=== PATIENT | male | born 1935 | race Caucasian/White ===

== ENCOUNTER 2017-03-14 06:44 | Day surgery (SDC) | payer MEDICARE ==
[2017-03-09 10:26] VITALS: BMI 27.3
[~2017-03-14 06:44] MED LIST: LACTATED RINGERS 1,000 ML IV SCH
[2017-03-14 07:09] LABS: Glucose,Whole Blood 116 mg/dL (75-99)
[2017-03-14 07:10] VITALS: TEMP 97
[2017-03-14] MEDS ORDERED: PROPOFOL 10 MG/ML 20 ML VIAL IV ONE (07:47)
--- NOTE | 2017-03-14 07:51 | P.GSHP ---
History of Present Illness H&P Date: 03/14/17 Chief Complaint: Screening colonoscopy, history: Polyps This is a 7-year-old male who presents today for screening colonoscopy. His last colonoscopy was approximately 11 years ago. Patient states that he had benign polyps removed at that time. Past Medical History Past Medical History: Coronary Artery Disease (CAD), Diabetes Mellitus, Hyperlipidemia, Hypertension, Prostate Disorder Additional Past Medical History / Comment(s): Hx of polyps, Chronic back pain, Uses a cane History of Any Multi-Drug Resistant Organisms: None Reported Past Surgical History: Coronary Bypass/CABG, Heart Catheterization Additional Past Surgical History / Comment(s): Aortic valve replacement, yue carotidendarectomy, epidural shots for pain mng. states cabg x2, and aneurysm repair Past Anesthesia/Blood Transfusion Reactions: No Reported Reaction Smoking Status: Former smoker - Past Family History Mother Family Medical History: No Reported History Medications and Allergies Home Medications Medication Instructions Recorded Confirmed Type ALPRAZolam [Xanax] 0.25 mg PO QID PRN 03/09/17 03/14/17 History Aspirin [Children's Aspirin] 81 mg PO DAILY 03/09/17 03/14/17 History Cholecalciferol (Vitamin D3) 2,000 unit PO DAILY 03/09/17 03/14/17 History [Vitamin D3] Enalapril/Hydrochlorothiazide 1 each PO DAILY 03/09/17 03/14/17 History [Enalapril-Hctz 10-25 mg Tablet] HYDROcodone/APAP 10-325MG [[place] 1 tab PO Q8H 03/09/17 03/14/17 History 10-325] Levothyroxine Sodium [Synthroid] 150 mcg PO DAILY 03/09/17 03/14/17 History Meloxicam [Mobic] 7.5 mg PO BID 03/09/17 03/14/17 History Metoprolol Tartrate [Lopressor] 50 mg PO QAM 03/09/17 03/14/17 History [place]-3 Fatty Acids [[place]-3] 1,000 mg PO DAILY 03/09/17 03/14/17 History Rosuvastatin [Crestor] 10 mg PO DAILY 03/09/17 03/14/17 History Tamsulosin HCl [Flomax] 0.4 mg PO DAILY 03/09/17 03/14/17 History sitaGLIPtin [Januvia] 100 mg PO DAILY 03/09/17 03/14/17 History tiZANidine [Zanaflex] 2 mg PO Q8HR PRN 03/09/17 03/14/17 History Allergies Allergy/AdvReac Type Severity Reaction Status Date / Time acetaminophen [From Vicodin] AdvReac Confusion Verified 03/14/17 07:05 atorvastatin [From Lipitor] AdvReac muscle Verified 03/09/17 10:14 pains hydrocodone [From Vicodin] AdvReac Confusion Verified 03/14/17 07:05 Surgical - Exam Vital Signs Temp Pulse Resp BP Pulse Ox 97.0 F L 105 H 18 170/77 95 03/14/17 07:05 03/14/17 07:05 03/14/17 07:05 03/14/17 07:05 03/14/17 07:05 - General well developed, no distress - Eyes PERRL - ENT normal pinna - Neck no masses - Respiratory normal expansion - Cardiovascular Rhythm: regular - Abdomen Abdomen: soft, non tender Results - Labs Abnormal Lab Results - Last 24 Hours (Table) 03/14/17 Range/Units 07:07 POC Glucose (mg/dL) 116 H (75-99) mg/dL Assessment and Plan Plan: We will perform screening colonoscopy.
--- NOTE | 2017-03-14 08:00 | P.OP ---
Date of Procedure: 03/14/17 Preoperative Diagnosis: Screening colonoscopy History of colonic polyp Postoperative Diagnosis: Diverticulosis Procedure(s) Performed: Colonoscopy Implants: Anesthesia: MAC Surgeon: Connor Walker Pathology: none sent Condition: stable Disposition: PACU Indications for Procedure: Operative Findings: Description of Procedure: Patient's placed on the endoscopy table in the lateral position. Digital rectal exam was performed which revealed no abnormalities. The prostate was symmetric without nodules. The fundus colonoscope was then placed patient anus and passed throughout the entire colon. The ileocecal valve was visualized. The cecum, ascending and transverse colon appeared normal. In the descending; there is moderate diverticular changes. There is extensive diverticular changes in the sigmoid colon. There was no evidence of diverticulitis. Scope was then brought back the rectum and this appeared normal. Scope was withdrawn for patient.
[2017-03-14 08:25] VITALS: BP 131/74; PULSE 78; RESP 18
== END 2017-03-14 08:31 | disposition home or self-care (01) ==
LOC: ORWHC2ENDO 06:44
PROVIDERS: ATTEND Surgery
DX: Z12.11 Encounter for screening for malignant neoplasm of colon (principal); K57.30 Diverticulosis of large intestine without perforation or abscess without bleeding; Z86.010 Personal history of colon polyps; Z87.891 Personal history of nicotine dependence; I25.10 Atherosclerotic heart disease of native coronary artery without angina pectoris; Z95.1 Presence of aortocoronary bypass graft; I10 Essential (primary) hypertension; E11.9 Type 2 diabetes mellitus without complications; Z79.84 Long term (current) use of oral hypoglycemic drugs; E78.5 Hyperlipidemia, unspecified; N40.0 Benign prostatic hyperplasia without lower urinary tract symptoms; E07.9 Disorder of thyroid, unspecified; Z79.82 Long term (current) use of aspirin; Z79.1 Long term (current) use of non-steroidal anti-inflammatories (NSAID); Z79.891 Long term (current) use of opiate analgesic; Z79.899 Other long term (current) drug therapy; Z88.5 Allergy status to narcotic agent; Z88.8 Allergy status to other drugs, medicaments and biological substances
CPT/HCPCS: J2704; G0105

== ENCOUNTER → 2023-01-11 | Outpatient (CLI) | payer MEDICARE ==
--- NOTE | 2023-01-11 14:18 | P.PAINPG ---
PQRS Measure Charge Sheet Comment: HISTORY OF PRESENT ILLNESS: 87 yr old male w daughter at side as a referral from Dr Shaw presents today w severe and chronic LBP x 3 mo secondary to DDD, spondylosis and facet arthropathy without myelopathy for evaluation. Pt states pain level is provoked at 6 /10 in intensity, constant, localized in the lower lumbar spine, in character w shooting pain towards the R hip. Pain is provoked by weight bearing activity. Pain is alleviated by use of a cane for ambulatory assistance, medications ([place], Neurontin), topical injections in the past, repositioning and rest. PMH: OA, HTN, Hypothyroidism, BPH, DM II PSH: Colonoscopy (2017) SH: Negative x3 FH: Non contributory All: See list Meds: See list REVIEW OF ORGAN SYSTEMS: CONSTITUTIONAL: No fevers or chills. No recent weight loss. NEUROLOGICAL: + numbness and tingling along the distal extremities. No seizure disorders or headaches. MUSCULOSKELETAL: + pain PSYCHIATRIC: Denies current depression or suicidal thoughts. Physical Examinations : Constitutional : Cooperative , not in acute distress . Neurologic : Cranial nerve II to XII intact. No focal neurological deficits. Psychiatric : alert & oriented x 3. Matching mood & appropriate affect. Judgment & insight intact. Musculoskeletal : Cervical Spine Motor strength in the deltoid and biceps: Normal right side. Normal Left side Motor strength biceps and the wrist extensors: Normal right side . Normal left side Motor strength in the triceps muscle: Normal right side. Normal left side Deep tendon reflexes: Normal at the biceps. Normal at Brachioradialis. Normal at triceps Vertebral body tenderness to deep palpation over Cervical facet loading test: positive bilaterally Spurling test: positive bilaterally Neck distraction test: positive bilaterally Caroline sign: positive bilaterally Lumbar spine Motor strength lower extremities ,thigh and legs 5/5 Right side , 5/5 Left side Deep tendon reflexes : Normal Knee Jerk. Normal Ankle Jerk Vertebral body tenderness over L4 Lumbar facet Loading Test: positive Right / positive Left Range of motion of the lumbar spine Flexion 30 degrees, extension 10 degrees Straight Leg Raise test: Left/ Right positive at degree Emma test: positive right / positive left. Severe tenderness over the Sacroiliac joint on the Right / Left sides Gaenslen test: positive bilaterally Seated flexion test: positive bilaterally. Sacral spine : Severe tenderness over the Sacroiliac joint: right side / left side Range of motion: Flexion of the lumbar spine <60 degrees Range of motion: Extension of the lumbar spine <20 degrees Gaenslen's Test positive Chris's Test positive Emma test: positive right side / left side Thigh Thrust Test Sacral Thrust Test Imaging: CT noncontrast of the lumbar spine from 12/11/22 reviewed Assessment/ Plan : Lumbar spondylosis Recommendation of TATE R paramedian L4-5. May need a series of injections for optimal pain relief. Risks, benefits of procedure discussed and patient verbalized understanding. Admits to aspirin or anti- coagulant use or medical history of diabetes. Protocol for discontinuation/ continuation of medications ananda procedure discussed. All questions answered. I have spent greater than 30 minutes on patient care today. Dr Yeager was available by phone for the evaluation of this patient. The time was used to review the medical records including relevant urine studies and Prescription history (MAPs), review of the available imaging, evaluation and examination of the patient, coordination of care with the medical staff and if applicable referring physicians, as well as creation of the medical record PQRS Narrative: Smoking Status Former smoker Home Medications: Ambulatory Orders ALPRAZolam [Xanax] 0.25 mg PO QID PRN 03/09/17 Aspirin [Children's Aspirin] 81 mg PO DAILY 03/09/17 Cholecalciferol (Vitamin D3) [Vitamin D3] 2,000 unit PO DAILY 03/09/17 Enalapril/Hydrochlorothiazide [Enalapril-Hctz 10-25 mg Tablet] 1 each PO DAILY 03/09/17 HYDROcodone/APAP 10-325MG [[place] 10-325] 1 tab PO Q8H 03/09/17 Levothyroxine Sodium [Synthroid] 150 mcg PO DAILY 03/09/17 Meloxicam [Mobic] 7.5 mg PO BID 03/09/17 Metoprolol Tartrate [Lopressor] 50 mg PO QAM 03/09/17 [place]-3 Fatty Acids [[place]-3] 1,000 mg PO DAILY 03/09/17 Rosuvastatin [Crestor] 10 mg PO DAILY 03/09/17 Tamsulosin HCl [Flomax] 0.4 mg PO DAILY 03/09/17 sitaGLIPtin [Januvia] 100 mg PO DAILY 03/09/17 tiZANidine [Zanaflex] 2 mg PO Q8HR PRN 03/09/17 Controlled Substance Measures - Controlled Substance Measures Is patient prescribed a controlled substance at discharge?: No
[2023-01-11 14:26] VITALS: BP 119/70; PULSE 81; RESP 18; TEMP 97.7
== END ==
LOC: PNWHC3 12:19
PROVIDERS: ATTEND Specialist
DX: M47.816 Spondylosis without myelopathy or radiculopathy, lumbar region (principal); M25.551 Pain in right hip; M25.552 Pain in left hip; M19.90 Unspecified osteoarthritis, unspecified site; I10 Essential (primary) hypertension; E03.9 Hypothyroidism, unspecified; N40.0 Benign prostatic hyperplasia without lower urinary tract symptoms; E11.9 Type 2 diabetes mellitus without complications; Z79.82 Long term (current) use of aspirin; Z79.899 Other long term (current) drug therapy; Z79.84 Long term (current) use of oral hypoglycemic drugs; Z79.890 Hormone replacement therapy; Z88.8 Allergy status to other drugs, medicaments and biological substances; Z88.5 Allergy status to narcotic agent; Z87.891 Personal history of nicotine dependence
CPT/HCPCS: 99211

== ENCOUNTER → 2023-02-07 | Day surgery (SDC) | payer MEDICARE ==
[~2023-02-07] MED LIST changes: +IOPAMIDOL M200 10 ML VIAL ONE; +IV FLUID CONTINUATION 800 ML IV ONE; +LIDOCAINE 1% (10MG/ML) FOR IV START INTRADERMA PRN; +MIDAZOLAM 2 MG/2 ML VIAL ONE; +methylPREDNISolone ACETATE 40 MG/ML 1 ML VIAL ONE
[2023-02-07 09:20] VITALS: TEMP 97
[2023-02-07 09:26] LABS: Glucose,Whole Blood 123 mg/dL (70-110)
--- NOTE | 2023-02-07 09:49 | P.PCN ---
Date of Procedure: 02/07/23 Procedure(s) Performed: PREOPERATIVE DIAGNOSIS: 1- Lumbar Degenerative Disc Diseases 2-Lumbar spondylosis with Facet arthropathy without myelopathy. POSTOPERATIVE DIAGNOSIS: 1-lumbar degenerative disc disease. 2-lumbar spondylosis with facet arthropathy without myelopathy. PROCEDURE 1. Lumbar epidural steroid injection under fluoroscopic guidance at the L4-5 level. ( right paramedial ) (Fluoroscopy imaging was available in radiology department) 2. Lumbar epidurogram. ANESTHESIA: moderate sedation with intravenous Versed 1 mg . Sedation start time : 938 Sedation end time : 945 EBL: Minimal PROCEDURE INDICATION: The patient with low back pain and radiculitis symptoms unresponsive to conservative treatment. Fluoroscopy was used to optimize visualization of the needle placement and to maximize safety. PROCEDURE DESCRIPTION / TECHNIQUE: The patient was seen and identified in the preoperative area. Risks, benefits, complications including but not limited to infections ,bleeding ,allergic reaction to the medications ,nerve damage and not complete pain releife , and alternatives were discussed with the patient. The patient agreed to proceed with the procedure and signed the consent. IV was started, and vital signs were stable. Patient was taken to the OR and time out was completed. The patient was placed in the prone position on procedure table and a pillow was placed under the abdomen to reduce lumbar lordosis. The lumbosacral area was prepped and draped in the usual sterile fashion.ere closely monitored during the procedure. Conscious sedation was used during the procedure to decrease patients anxiety. Vital signs was monitered during the entire procedure. Using anterior-posterior fluoroscopy, the L4-5 interlaminar space ( right paramedial )was identified and the skin over this site was marked and then infiltrated with 1% lidocaine subcutaneously. Subsequently, a 20-gauge Tuohy epidural needle was inserted and advanced toward the epidural space using the ``Loss of resistance technique and guided by AP and lateral fluoroscopy. The correct needle position in the epidural space was verified with the injection of 2 mL of the water soluble contrast dye Isovue 200 contrast and observing an excellent epidurogram with the epidural spread of the dye, after negative aspiration for blood and CSF and in the absence of paresthesias. Again after negative aspiration, a 6 ml mixture containing 40 mg of Depo-medrol ( Preservetive Free ), and 2 ml of preservative free Normal Saline, and 2 ml of preservative free lidocaine 1% solution was injected and a washout of epidurogr am was seen. Needle was withdrawn intact, skin was cleansed, and bandages were applied. COMPLICATIONS: None DISPOSITION / PLANS: The patient was placed in a supine position and transferred to the recovery area in a stable condition for observation. There was no evidence of lower extremity motor or sensory deficit after the procedure. Patient was discharged from the recovery room after meeting discharge criteria. Home discharge instructions were given to the patient by the staff. The patient was reexamined prior to discharge. The patient will schedule a follow up in the clinic in 2-4 weeks.
[2023-02-07 09:54] VITALS: RESP 16
[2023-02-07 10:09] VITALS: BP 124/70; PULSE 83
--- NOTE | 2023-02-07 15:23 | FL ---
Intraoperative/procedural fluoroscopic services were provided. Total fluoroscopy time is 3.1 seconds with a total of 1 submitted images to PACS. Please see the operative/procedural note for further deta ils. DAP: [id number]
== END ==
LOC: ORPAIN 08:54
PROVIDERS: ATTEND Specialist
DX: M51.16 Intervertebral disc disorders with radiculopathy, lumbar region (principal); M47.26 Other spondylosis with radiculopathy, lumbar region; I10 Essential (primary) hypertension; E11.9 Type 2 diabetes mellitus without complications; Z88.8 Allergy status to other drugs, medicaments and biological substances
CPT/HCPCS: 62323; J2250; J1030; Q9966

== ENCOUNTER → 2023-03-01 | Outpatient (CLI) | payer MEDICARE ==
[2023-03-01 13:10] VITALS: BP 110/62; PULSE 80; RESP 18
--- NOTE | 2023-03-01 15:50 | P.PAINPG ---
PQRS Measure Charge Sheet Comment: A 87 yr old male w daughter at side with a history of severe and chronic LBP secondary to lumbar DDD and spondylosis with facet arthropathy without myelopathy presents today for evaluation s/p TATE R paramedian L4-L5. Pt states he experienced 90 % pain relief x 3 wks s/p procedure. Pain level is provoked at 5/10 in intensity, constant, localized in the lumbar spine, tight in character w shooting towards the RLE up to the knee. Pain is provoked by walking for periods of 20 min or more. Pain is alleviated with medications, use of wheelchair and cane for ambulatory assistance, heat, sitting, repositioning and rest. Interventional pain procedures completed include R paramedian TATE L4-L5 Patient is currently on [place], Neurontin Patient denies any side effects of the medication(s), denies excessive drowsiness or sleepiness, denies suicidal ideation and reports that the current pain medication is helping to control the pain and improve activities of daily living. Patient denies any motor or sensory deficits. Patient denies any fever or night sweats, denies any change in the bowel movements or urination. Physical Examination: -Constitutional: Cooperative. Not in acute distress . - Neurologic: Cranial nerve II to XII intact. No focal neurological deficits. - Psychatric: Alert & oriented x 3. Matching mood & appropriate affect. Judgment and insight intact. - Musculoskeletal: Cervical spine: Muscle bulk/ tone/ strength in the bilateral upper extremities normal Vertebral body tenderness to palpation over Spurling test positive Distraction test positive Facet loading test positive TTP Thoracic spine Muscle bulk / tone/ strength in the bilateral paraspinal muscles normal Vertebral body tender to palpation over Facet loading test positive TTP Lumbar spine: Motor bulk/ tone/ strength lower extremities , thigh and legs : 5/5 Deep tendon reflexes : Normal Knee Jerk. Normal Ankle Jerk . Vertebral body tenderness to palpation over Vasquez Test positive Lumbar Facet Loading Test positive Straight Leg Raise: positive at 30 degrees right side/ left side Gaenslen's Test positive Sacral spine : Severe tenderness over the Sacroiliac joint: right side / left side Range of motion: Flexion of the lumbar spine <60 degrees Range of motion: Extension of the lumbar spine <20 degrees Gaenslen's Test positive right side / left side Emma test: positive right side / left side Thigh Thrust Test positive right side / left side Sacral Thrust Test positive right side / left side Assessment and plan: Chronic LBP secondary to lumbar DDD, spondylosis with facet arthropathy without myelopathy Pt exhibited sufficient and substantial pain relief w TATE procedure. Will manage residual pain on his own and may return to clinic on an as needed basis. All questions answered. I have spent less than 30 minutes on patient care today. Dr Yeager was available by phone for the evaluation of this patient. The time was used to review the medical records including relevant urine studies and Prescription history (MAPs), review of the available imaging, evaluation and examination of the patient, coordination of care with the medical staff and if applicable referring physicians, as well as creation of the medical record PQRS Narrative: Smoking Status Former smoker Hx Alcohol Use (MH) No Home Medications: Ambulatory Orders Aspirin [Children's Aspirin] 81 mg PO DAILY 03/09/17 Cholecalciferol (Vitamin D3) [Vitamin D3] 1,000 unit PO DAILY 03/09/17 Enalapril/Hydrochlorothiazide [Enalapril-Hctz 10-25 mg Tablet] 1 each PO DAILY 03/09/17 HYDROcodone/APAP 10-325MG [[place] 10-325] 1 tab PO Q6H PRN 03/09/17 Levothyroxine Sodium [Synthroid] 150 mcg PO DAILY 03/09/17 Metoprolol Tartrate [Lopressor] 50 mg PO QAM 03/09/17 [place]-3 Fatty Acids [[place]-3] 1,000 mg PO DAILY 03/09/17 Tamsulosin HCl [Flomax] 0.4 mg PO DAILY 03/09/17 sitaGLIPtin [Januvia] 100 mg PO DAILY 03/09/17 Dulaglutide [Trulicity] 0.75 mg SQ TU 01/24/23 Gabapentin 300 mg PO DAILY 01/24/23 Montelukast Sodium [Singulair] 10 mg PO DAILY 01/24/23 Omeprazole [PriLOSEC] 40 mg PO DAILY 01/24/23 amLODIPine [Norvasc] 5 mg PO DAILY 01/24/23 Ascorbic Acid [Vitamin C] 1,000 mg PO DAILY 02/03/23 Gabapentin 600 mg PO 02/03/23 Multivit-Min/FA/Lycopen/Lutein [Centrum Silver Men Tablet] 1 each PO DAILY 02/03/23 Pravastatin Sodium [Pravachol] 40 mg PO HS 02/03/23 Zinc Gluconate [Zinc] 50 mg PO DAILY 02/03/23 metFORMIN HCL 500 mg PO DAILY 02/03/23 rOPINIRole HCL 0.25 mg PO DAILY 02/03/23 Controlled Substance Measures - Controlled Substance Measures Is patient prescribed a controlled substance at discharge?: No
== END ==
LOC: PNWHC3 12:35
PROVIDERS: ATTEND Specialist
DX: M54.50 Low back pain, unspecified (principal); M51.36 Other intervertebral disc degeneration, lumbar region; M47.816 Spondylosis without myelopathy or radiculopathy, lumbar region; G89.29 Other chronic pain; Z87.891 Personal history of nicotine dependence; Z88.5 Allergy status to narcotic agent; Z88.8 Allergy status to other drugs, medicaments and biological substances
CPT/HCPCS: 99211

== ENCOUNTER → 2023-05-04 | Outpatient (CLI) | payer MEDICARE ==
[2023-05-04 14:51] VITALS: BP 90/55; PULSE 70; RESP 14; TEMP 97.7
--- NOTE | 2023-05-04 15:50 | P.PAINPG ---
PQRS Measure Charge Sheet Comment: A 87 yr old male w daughter at side with a history of severe and chronic LBP x 2 mo secondary to lumbar DDD and spondylosis with facet arthropathy without myelopathy presents today for evaluation. Pain level is provoked at 7/10 in intensity, constant, localized in the lumbar spine, tight in character w roxie oting towards the BLEs, R > L. Pain is provoked by walking for periods of 20 min or more. Pain is alleviated with a daily physician guided home stretching regimen from Dr Shaw since Nov 2022, medications, use of wheelchair and cane for ambulatory assistance, heat, sitting, repositioning and rest. Oswestry axial pain score of 24. Interventional pain procedures completed include R paramedian TATE L4-L5 x1 Patient is currently on [place], Neurontin Patient denies any side effects of the medication(s), denies excessive drowsiness or sleepiness, denies suicidal ideation and reports that the current pain medication is helping to control the pain and improve activities of daily living. Patient denies any motor or sensory deficits. Patient denies any fever or night sweats, denies any change in the bowel movements or urination. Physical Examination: -Constitutional: Cooperative. Not in acute distress . - Neurologic: Cranial nerve II to XII intact. No focal neurological deficits. - Psychatric: Alert & oriented x 3. Matching mood & appropriate affect. Judgment and insight intact. - Musculoskeletal: Cervical spine: Muscle bulk/ tone/ strength in the bilateral upper extremities normal Vertebral body tenderness to palpation over Spurling test positive Distraction test positive Facet loading test positive TTP Thoracic spine Muscle bulk / tone/ strength in the bilateral paraspinal muscles normal Vertebral body tender to palpation over Facet loading test positive TTP Lumbar spine: Motor bulk/ tone/ strength lower extremities , thigh and legs : 5/5 Deep tendon reflexes : Normal Knee Jerk. Normal Ankle Jerk . Vertebral body tenderness to palpation over L4 Vasquez Test positive Lumbar Facet Loading Test positive Straight Leg Raise: positive at 30 degrees right side/ left side Gaenslen's Test positive Sacral spine : Severe tenderness over the Sacroiliac joint: right side / left side Range of motion: Flexion of the lumbar spine <60 degrees Range of motion: Extension of the lumbar spine <20 degrees Gaenslen's Test positive right side / left side Emma test: positive right side / left side Thigh Thrust Test positive right side / left side Sacral Thrust Test positive right side / left side Assessment and plan: Chronic LBP secondary to lumbar DDD, spondylosis with facet arthropathy without myelopathy Recommendation of R paramedian TATE L4-L5 #2. May need a series of injections for optimal pain relief. Risks, benefit s of procedure discussed and pt verbalized understanding. Protocol for discontinuation/ continuation of medications surrounding procedure discussed. All questions answered. I have spent less than 30 minutes on patient care today. Dr Yeager was available by phone for the evaluation of this patient. The time was used to review the medical records including relevant urine studies and Prescription history (MAPs), review of the available imaging, evaluation and examination of the patient, coordination of care with the medical staff and if applicable referring physicians, as well as creation of the medical record PQRS Narrative: Smoking Status Former smoker Hx Alcohol Use (MH) No Home Medications: Ambulatory Orders Aspirin [Children's Aspirin] 81 mg PO DAILY 03/09/17 Cholecalciferol (Vitamin D3) [Vitamin D3] 1,000 unit PO DAILY 03/09/17 HYDROcodone/APAP 10-325MG [[place] 10-325] 1 tab PO BID PRN 03/09/17 [place]-3 Fatty Acids [[place]-3] 1,000 mg PO DAILY 03/09/17 Tamsulosin HCl [Flomax] 0.4 mg PO BID 03/09/17 Gabapentin 300 mg PO TID 01/24/23 Montelukast Sodium [Singulair] 10 mg PO DAILY 01/24/23 Omeprazole [PriLOSEC] 40 mg PO DAILY 01/24/23 Multivit-Min/FA/Lycopen/Lutein [Centrum Silver Men Tablet] 1 each PO DAILY 02/03/23 Pravastatin Sodium [Pravachol] 40 mg PO HS 02/03/23 Levothyroxine Sodium [Synthroid] 137 mcg PO DAILY 05/04/23 Metoprolol Succinate (ER) [Toprol Xl] 50 mg PO DAILY 05/04/23 sitaGLIPtin PHOS/metFORMIN HCL [Janumet Xr 100-1,000 mg Tablet] 1 tab PO DAILY 05/04/23 Controlled Substance Measures - Controlled Substance Measures Is patient prescribed a controlled substance at discharge?: No
== END ==
LOC: PNWHC3 14:04
PROVIDERS: ATTEND Specialist
DX: M51.36 Other intervertebral disc degeneration, lumbar region (principal); M47.816 Spondylosis without myelopathy or radiculopathy, lumbar region; G89.29 Other chronic pain; Z87.891 Personal history of nicotine dependence; Z88.5 Allergy status to narcotic agent; Z88.8 Allergy status to other drugs, medicaments and biological substances; Z79.82 Long term (current) use of aspirin
CPT/HCPCS: 99211